=== PATIENT | male | born 1945 | race Caucasian/White ===

== ENCOUNTER 2017-01-22 04:53 | Emergency (ER) | payer MEDICARE, OTHER ==
[~2017-01-22] VITALS: Ht 177.8 cm; Wt 93.4 kg
[2017-01-22 05:02] VITALS: BP 158/76; PULSE 41; RESP 18; TEMP 97.3; O2SAT 98
[2017-01-22] MEDS ORDERED: AMLO10CA3 PO (05:20)
[2017-01-22] MEDS ORDERED: CARV6.252 PO (05:20)
[2017-01-22] MEDS ORDERED: FURO20TA PO (05:20)
[2017-01-22] MEDS ORDERED: PLAV75TA29 PO (05:20)
[2017-01-22] MEDS ORDERED: VEDO1INJ IV (05:20)
[2017-01-22] MEDS ORDERED: ASPI81CH6 CHEW (05:20)
[2017-01-22] MEDS ORDERED: ZOLP10TA3 PO (05:20)
--- NOTE | 2017-01-22 05:37 | PD ---
HPI Chief Complaint: Respiratory Symptoms Time Seen by Provider: 05:23 Travel History International Travel<30 days: No Contact w/Intl Traveler<30days: No Traveled to known affect area: No History of Present Illness HPI This is a 71-year-old male who has a history of COPD who wears 2 L of oxygen at night as well as 2 cardiac stents who presents to the emergency department with the sensation that he can't fall asleep. He feels like every time he lays down he feels short of breath and has to gasp for air and gets up. His symptoms are intermittent, improved with sitting up, moderate severity. He says throughout the day he's felt a little more shortness of breath especially with exertion. He denies any chest pain. He says he's had trouble like this before. PFSH Past Medical History Arthritis: Yes (NECK) Asthma: Yes Anxiety: Yes Depression: Yes Heart Rhythm Problems: Yes ("IRREGULAR HEART BEAT") Cancer: Yes (RIGHT KIDNEY, NONMALIGNANT) Cardiac Catheterization: Yes High Cholesterol: Yes Chest Pain: Yes COPD: Yes Coronary Artery Disease: Yes Deep Vein Thrombosis: Yes (LEFT UPPER LEG) Gastrointestinal Disorders: Yes (CROHN'S DISEASE) Hypertension: Yes Kidney Stones: Yes Migraines: Yes Shingles: Yes Sleep Apnea: Yes (WEARS O2 @ 2L VIA NC, CANNOT TOLERATE CPAP) Thyroid Disease: Yes Tetanus Vaccination: > 5 Years Influenza Vaccination: No Past Surgical History Cardiac Surgery: Yes (LEFT LEG STENT FOR DVT) Coronary Stent: Yes (X2) Genitourinary Surgery: Yes (RIGHT NEPHRECTOMY: 11/10/16 ) Oral Surgery: Yes (DENTAL IMPLANTS) Tonsillectomy: Yes Social History Alcohol Use: Yes ("BEER ONCE A MONTH MAYBE") Tobacco Use: No (QUIT 2009) Substance Use: No Allergies-Medications (Allergen,Severity, Reaction): Coded Allergies: infliximab (Verified Allergy, Severe, 01/22/17) SWEATING, WEAKNESS, EXHAUSTION Penicillins (Verified Allergy, Intermediate, Rash, 01/22/17) diphenhydramine (Verified Allergy, Intermediate, 01/22/17) SLURRED SPEECH, EXHAUSTION Reported Meds & Prescriptions Reported Meds & Active Scripts Active Reported Amlodipine-Benazepril 10-40 Mg Cap 1 Cap PO DAILY Aspirin Low Dose (Aspirin) 81 Mg Chew 81 Mg CHEW DAILY Entyvio Inj (Vedolizumab Inj) 300 Mg Inj 300 Mg IV MONTHLY Zolpidem (Zolpidem Tartrate) 10 Mg Tab 10 Mg PO HS PRN Furosemide 20 Mg Tab 20 Mg PO DAILY Plavix (Clopidogrel Bisulfate) 75 Mg Tab 75 Mg PO DAILY Carvedilol 6.25 Mg Tab 6.25 Mg PO BID Review of Systems Except as stated in HPI: all other systems reviewed are Neg Physical Exam Narrative GENERAL:Well appearing, no acute distress SKIN: Focused skin assessment warm and dry. HEAD: Atraumatic. Normocephalic. EYES: Pupils equal and round. No injection or drainage. ENT: Moist mucous membranes NECK: Trachea midline. CARDIOVASCULAR: Regular rate and rhythm. No murmur appreciated. RESPIRATORY: Clear to auscultation. Breath sounds equal bilaterally. GASTROINTESTINAL: Abdomen soft, non-tender, nondistended. MUSCULOSKELETAL: No obvious deformities. NEUROLOGICAL: Awake and alert. No obvious cranial nerve deficits. Moving all extremities. PSYCHIATRIC: Appropriate mood and affect; insight and judgment normal. Data Data Last Documented VS Vital Signs Date Time Temp Pulse Resp B/P (MAP) Pulse Ox O2 Delivery O2 Flow Rate FiO2 01/22/17 05:57 Aerosol Mask 01/22/17 05:45 74 145/79 (101) 154/74 (100) 01/22/17 05:15 96 01/22/17 05:02 97.3 18 Orders Orders Albuterol-Ipratropium Neb (Duoneb Neb) (01/22/17 05:45) Electrocardiogram (01/22/17 05:34) B-Type Natriuretic Peptide (01/22/17 05:34) Complete Blood Count With Diff (01/22/17 05:34) Comprehensive Metabolic Panel (01/22/17 05:34) Troponin I (01/22/17 05:34) Chest, Single Ap (01/22/17 05:34) Ecg Monitoring (01/22/17 05:34) Bilateral Bp Monitoring (01/22/17 05:34) Iv Access Insert/Monitor (01/22/17 05:34) Oximetry (01/22/17 05:34) Oxygen Administration (01/22/17 05:34) Sodium Chloride 0.9% Flush (Ns Flush) (01/22/17 05:45) Albuterol-Ipratropium Neb (Duoneb Neb) (01/22/17 05:45) D-Dimer (01/22/17 05:38) Ventilation & Perfusion Scan (01/22/17 ) Troponin I (01/22/17 08:40) Labs Laboratory Tests Test 01/22/17 05:40 White Blood Count 8.1 TH/MM3 Red Blood Count 4.77 MIL/MM3 Hemoglobin 13.6 GM/DL Hematocrit 40.6 % Mean Corpuscular Volume 85.2 FL Mean Corpuscular Hemoglobin 28.6 PG Mean Corpuscular Hemoglobin Concent 33.5 % Red Cell Distribution Width 15.0 % Platelet Count 210 TH/MM3 Mean Platelet Volume 7.3 FL Neutrophils (%) (Auto) 57.1 % Lymphocytes (%) (Auto) 22.8 % Monocytes (%) (Auto) 16.1 % Eosinophils (%) (Auto) 3.5 % Basophils (%) (Auto) 0.5 % Neutrophils # (Auto) 4.7 TH/MM3 Lymphocytes # (Auto) 1.8 TH/MM3 Monocytes # (Auto) 1.3 TH/MM3 Eosinophils # (Auto) 0.3 TH/MM3 Basophils # (Auto) 0.0 TH/MM3 CBC Comment DIFF FINAL Differential Comment D-Dimer Quantitative (PE/DVT) 2.73 MG/L FEU Blood Urea Nitrogen 18 MG/DL Creatinine 1.10 MG/DL Random Glucose 100 MG/DL Total Protein 6.6 GM/DL Albumin 3.1 GM/DL Calcium Level 8.0 MG/DL Alkaline Phosphatase 91 U/L Aspartate Amino Transf (AST/SGOT) 19 U/L Alanine Aminotransferase (ALT/SGPT) 26 U/L Total Bilirubin 0.4 MG/DL Sodium Level 139 MEQ/L Potassium Level 3.4 MEQ/L Chloride Level 108 MEQ/L Carbon Dioxide Level 21.2 MEQ/L Anion Gap 10 MEQ/L Estimat Glomerular Filtration Rate 66 ML/MIN Troponin I LESS THAN 0.02 NG/ML B-Type Natriuretic Peptide 221 PG/ML MDM Medical Decision Making Medical Screen Exam Complete: Yes Emergency Medical Condition: Yes Interpretation(s) Afebrile, normotensive No leukocytosis Electrolytes are reassuring Potassium is 3.4 BNP is 221 Troponin is normal Chest x-rays reassuring D-dimer is 2.7 Differential Diagnosis Bronchitis, pneumonia, congestive heart failure, arrhythmia, pulmonary embolism Narrative Course This is a 71-year-old male was a history of COPD, coronary artery disease and prior DVT who presents to the emergency department with increasing dyspnea on exertion and worsening orthopnea. He was placed on a monitor and an IV was established. Labs are obtained which demonstrate no elevated d-dimer. Patient recently had a nephrectomy. VQ scan will be ordered. Otherwise his chest x- ray and BNP are reassuring. First troponin is normal and his symptoms are atypical. Given the chronicity of his symptoms I think is a second troponin is normal, and if his VQ scan is reassuring he can be discharged home to follow up with his primary care physician. Minal Montenegro MD Jan 22, 2017 05:37
[2017-01-22 05:45] VITALS: BP_SYST 145; BP_SYST 154; BP_DIAS 74; BP_DIAS 79; PULSE 74
[2017-01-22] MEDS ORDERED: SODIUM CHLORIDE 0.9% FLUSH 10 ML FLUSH IVF PRN (05:45)
[2017-01-22] MEDS ORDERED: RESP: ALBUTEROL 2.5 MG/IPRATROPIUM 0.5 MG NEB (SCH) NEB ONE ×2 (05:45)
[2017-01-22 06:02] LABS: AUTOMATED NEUTROPHIL # 4.7 TH/MM3 (1.8-7.7); BASOPHIL % 0.5 % (0.0-2.0); EOSINOPHIL # 0.3 TH/MM3 (0-0.4); EOSINOPHIL % 3.5 % (0.0-4.0); HEMATOCRIT 40.6 % (39.0-51.0); HEMO FLAGS DIFF FINAL; LYMPH % 22.8 % (9.0-44.0); LYMPHOCYTE # 1.8 TH/MM3 (1.0-4.8); MEAN CELL VOLUME 85.2 FL (80.0-100.0); MEAN CORPUSCULAR HEMOGLOBIN 28.6 PG (27.0-34.0); MEAN CORPUSCULAR HGB CONC 33.5 % (32.0-36.0); MONO % 16.1 % (0.0-8.0); NEUT % 57.1 % (16.0-70.0); PLATELET COUNT 210 TH/MM3 (150-450); RED BLOOD COUNT 4.77 MIL/MM3 (4.50-5.90); WHITE BLOOD COUNT 8.1 TH/MM3 (4.0-11.0)
[2017-01-22 06:08] LABS: CHLORIDE 108 MEQ/L (98-107); POTASSIUM 3.4 MEQ/L (3.5-5.1); SODIUM (NA) 139 MEQ/L (136-145)
[2017-01-22 06:12] LABS: ANION GAP 10 MEQ/L (5-15); BICARBONATE 21.2 MEQ/L (21.0-32.0); BLOOD UREA NITROGEN 18 MG/DL (7-18)
--- NOTE | 2017-01-22 06:14 | RADRPT ---
EXAM DATE/TIME: 01/22/2017 06:00 [facility] COMPARISON: No previous studies available for comparison. INDICATIONS : Short of breath. MEDICAL HISTORY : Hypertension. Emphysema. SURGICAL HISTORY : Stents. ENCOUNTER: Initial ACUITY: 1 day PAIN SCORE: 0/10 LOCATION: Bilateral chest FINDINGS: The cardiac silhouette is enlarged in transverse diameter. The background interstitium is prominent t natan this is likely chronic in nature. The aortic knob is prominent with tortuosity of the descendin g thoracic aorta. CONCLUSION: 1. Cardiomegaly. No acute pulmonary disease. Billy Jimenez MD on January 22, 2017 at 6:12 Board Certified Radiologist. This report was verified electronically.
[2017-01-22 06:15] LABS: ALT (GPT) 26 U/L (12-78); AST (GOT) 19 U/L (15-37); GLOMERULAR FILTRATION RATE 66 ML/MIN (>89)
[2017-01-22 06:16] LABS: TOTAL BILIRUBIN ADULT 0.4 MG/DL (0.2-1.0)
[2017-01-22 06:18] LABS: ALKALINE PHOSPHATASE 91 U/L (45-117)
[2017-01-22 07:43] VITALS: BP 125/75; PULSE 80; RESP 16; O2SAT 97
--- NOTE | 2017-01-22 08:39 | PD ---
Physical Exam Narrative GENERAL: Well-nourished, well-developed patient. SKIN: Warm and dry. HEAD: Normocephalic and atraumatic. EYES: No injection or drainage. ENT: No nasal drainage noted. NECK: Supple, trachea midline. CARDIOVASCULAR: Regular rate and rhythm, ectopy noted on monitor RESPIRATORY: No tachypnea noted. No accessory muscle use. NEUROLOGICAL: Awake and alert. Moves all extremities and sensory grossly within normal limits. Normal speech. Data Data Last Documented VS Vital Signs Date Time Temp Pulse Resp B/P (MAP) Pulse Ox O2 Delivery O2 Flow Rate FiO2 01/22/17 11:08 56 18 141/75 (97) 99 Nasal Cannula 2.00 01/22/17 05:02 97.3 Orders Orders Albuterol-Ipratropium Neb (Duoneb Neb) (01/22/17 05:45) Electrocardiogram (01/22/17 05:34) B-Type Natriuretic Peptide (01/22/17 05:34) Complete Blood Count With Diff (01/22/17 05:34) Comprehensive Metabolic Panel (01/22/17 05:34) Troponin I (01/22/17 05:34) Chest, Single Ap (01/22/17 05:34) Ecg Monitoring (01/22/17 05:34) Bilateral Bp Monitoring (01/22/17 05:34) Iv Access Insert/Monitor (01/22/17 05:34) Oximetry (01/22/17 05:34) Oxygen Administration (01/22/17 05:34) Sodium Chloride 0.9% Flush (Ns Flush) (01/22/17 05:45) Albuterol-Ipratropium Neb (Duoneb Neb) (01/22/17 05:45) D-Dimer (01/22/17 05:38) Troponin I (01/22/17 08:40) Prothrombin Time / Inr (Pt) (01/22/17 07:18) Act Partial Throm Time (Ptt) (01/22/17 07:18) Ventilation & Perfusion Scan (01/22/17 07:18) Ed Discharge Order (01/22/17 11:09) Labs Laboratory Tests Test 01/22/17 05:40 01/22/17 08:42 White Blood Count 8.1 TH/MM3 Red Blood Count 4.77 MIL/MM3 Hemoglobin 13.6 GM/DL Hematocrit 40.6 % Mean Corpuscular Volume 85.2 FL Mean Corpuscular Hemoglobin 28.6 PG Mean Corpuscular Hemoglobin Concent 33.5 % Red Cell Distribution Width 15.0 % Platelet Count 210 TH/MM3 Mean Platelet Volume 7.3 FL Neutrophils (%) (Auto) 57.1 % Lymphocytes (%) (Auto) 22.8 % Monocytes (%) (Auto) 16.1 % Eosinophils (%) (Auto) 3.5 % Basophils (%) (Auto) 0.5 % Neutrophils # (Auto) 4.7 TH/MM3 Lymphocytes # (Auto) 1.8 TH/MM3 Monocytes # (Auto) 1.3 TH/MM3 Eosinophils # (Auto) 0.3 TH/MM3 Basophils # (Auto) 0.0 TH/MM3 CBC Comment DIFF FINAL Differential Comment Prothrombin Time 10.4 SEC Prothromb Time International Ratio 0.9 RATIO Activated Partial Thromboplast Time 32.4 SEC D-Dimer Quantitative (PE/DVT) 2.73 MG/L FEU Blood Urea Nitrogen 18 MG/DL Creatinine 1.10 MG/DL Random Glucose 100 MG/DL Total Protein 6.6 GM/DL Albumin 3.1 GM/DL Calcium Level 8.0 MG/DL Alkaline Phosphatase 91 U/L Aspartate Amino Transf (AST/SGOT) 19 U/L Alanine Aminotransferase (ALT/SGPT) 26 U/L Total Bilirubin 0.4 MG/DL Sodium Level 139 MEQ/L Potassium Level 3.4 MEQ/L Chloride Level 108 MEQ/L Carbon Dioxide Level 21.2 MEQ/L Anion Gap 10 MEQ/L Estimat Glomerular Filtration Rate 66 ML/MIN Troponin I LESS THAN 0.02 NG/ML LESS THAN 0.02 NG/ML B-Type Natriuretic Peptide 221 PG/ML [facility] Supervised Visit with [facility]: No Interpretation(s) CBC & BMP Diagram 01/22/17 05:40 Total Protein 6.6, Albumin 3.1 L, Calcium Level 8.0 L, Alkaline Phosphatase 91, Aspartate Amino Transf (AST/SGOT) 19, Alanine Aminotransferase (ALT/SGPT) 26, Total Bilirubin 0.4 Last 24 hours Impressions Lung Scan-VQ Nuclear Medicine 01/22/17 0718 Signed Impressions: Service Date/Time: Sunday, January 22, 2017 10:20 - CONCLUSION: Very low probability of pulmonary embolism. Jj Gregory MD Chest X-Ray 01/22/17 0534 Signed Impressions: Service Date/Time: Sunday, January 22, 2017 06:00 - CONCLUSION: 1. Cardiomegaly. No acute pulmonary disease. Billy Jimenez MD Narrative Course Signed over to me to check 3 hour troponin and CK and if these are normal patient can likely go home. After Dr. Montenegro left patient informed nursing staff that he recently had a CT of his chest that showed a stable aneurysm on January 06 of this year. I went in and talked with patient and he is denying any chest pain or back pain and only noting shortness of breath. He is not wanting a CAT scan again for repeat evaluation of his aneurysm and evaluation of a blood clot so we will proceed with V/Q was ordered. Patient states he wanted to make sure he was not having a heart attack, I informed patient that even with 2 cardiac markers being negative he could still have underlying heart issues that could put him prone to a heart attack that we cannot rule out in the emergency room but he states he has not sustained in the hospital for any other testing other than what prior physician ordered. Will follow V/Q shows low probability, second troponin is negative, offered observation for cardiac workup and patient is wanting to leave. Clear to auscultation bilaterally, vitals stable. Patient will continue nebulizer at home as needed and follow closely with his primary doctor. Patient states he has prednisone at home he can use if he wants when I talked with him about prescriptions. Return instructions given Diagnosis Primary Impression: Shortness of breath Additional Impression: COPD (chronic obstructive pulmonary disease) Qualified Codes: J44.9 - Chronic obstructive pulmonary disease, unspecified Patient Instructions: General Instructions Additional Instruction: return as needed, follow with primary tuesday, use inhaler every 4 hours as needed Med/Other Pt SpecificInfo: No Change to Meds Disposition: DISCHARGE HOME Condition: Stable Carla Mayers MD Jan 22, 2017 08:39
[2017-01-22 09:07] LABS: APTT (PATIENT) 32.4 SEC (24.3-30.1); INTERNATIONAL NORMALIZED RATIO 0.9 RATIO; PROTHROMBIN TIME - PATIENT 10.4 SEC (9.8-11.6)
--- NOTE | 2017-01-22 11:00 | RADRPT ---
EXAM DATE/TIME: 01/22/2017 10:20 [facility] COMPARISON: No previous studies available for comparison. INDICATIONS : Short of breath. DOSE: 8.1 mCi Tc99m MAA IV 1.3 mCi Tc99m DTPA aerosol MEDICAL HISTORY : Chronic obstructive pulmonary disease. Cardiovascular disease Kidney cancer. SURGICAL HISTORY : Nephrectomy, right. Coronary artery stent. ENCOUNTER: Initial ACUITY: 1 day PAIN SCALE: 1/10 LOCATION: Bilateral chest TECHNIQUE: Following five minutes of tidal breathing of DTPA aerosol, planar images of the lungs were performed in eight projections. The patient was then injected with MAA, and eight-view perfusion scan was perf ormed. FINDINGS: There is a homogeneous pattern of aerosol delivery to the periphery of both lungs. No focal ventilat ory defects are seen. The perfusion lung scan demonstrates a homogenous pattern of uptake in both lungs. No segmental or s ubsegmental defects are seen. CONCLUSION: Very low probability of pulmonary embolism. Jj Gregory MD on January 22, 2017 at 10:58 Board Certified Radiologist. This report was verified electronically.
[2017-01-22 11:08] VITALS: BP 141/75; PULSE 56; RESP 18; O2SAT 99
--- NOTE | 2017-01-22 12:06 | EKG ---
Date Performed: 01/22/2017 Time Performed: 05:48:44 PTAGE: 71 years EKG: Sinus rhythm with frequent complex ventricular bigeminy with one episode where there are three PVCs in a row afte r a sinus beat, but generally this is a ventricular bigeminy. Left axis deviation Left ventricular hy pertrophy ABNORMAL ECG NO PREVIOUS TRACING DOCTOR: Tommy Cam Interpretating Date/Time 01/22/2017 12:06:21
== END 2017-01-22 11:25 | disposition home or self-care (01) ==
LOC: PHED 04:53
DX: R06.02 Shortness of breath (principal); J44.9 Chronic obstructive pulmonary disease, unspecified; R94.31 Abnormal electrocardiogram [ECG] [EKG]; I10 Essential (primary) hypertension; E07.9 Disorder of thyroid, unspecified; E78.00 Pure hypercholesterolemia, unspecified; G47.30 Sleep apnea, unspecified; Z87.09 Personal history of other diseases of the respiratory system; Z99.81 Dependence on supplemental oxygen; Z87.39 Personal history of other diseases of the musculoskeletal system and connective tissue; Z86.59 Personal history of other mental and behavioral disorders; Z86.79 Personal history of other diseases of the circulatory system; Z86.718 Personal history of other venous thrombosis and embolism; Z87.19 Personal history of other diseases of the digestive system; Z87.442 Personal history of urinary calculi; Z86.69 Personal history of other diseases of the nervous system and sense organs
CPT/HCPCS: 71010; 78582; 80053; 83880; 84484; 85025; 85379; 85610; 85730; 93005; 94640; 94664; 99285; A9540; A9567